=== PATIENT | male | born 1985 | race Caucasian/White ===

== ENCOUNTER 2017-05-06 14:21 | Emergency (ER) | payer OTHER ==
[~2017-05-06] VITALS: Ht 170.2 cm; Wt 263.1 kg
[~2017-05-06 14:21] MED LIST: CLEOCIN300 MG PO; DURICEF; FOLVITE1 MG PO; Folvite PO; Maxipime IV; ROBITUSSIN AC,T10 ML PO; Silvadene,SSD,Therma TP; Vicodin,Lortab 5/500 PO; ZOLOFT100 MG PO; ZYVOX600 MG PO; Zoloft PO
[2017-05-06 16:09] LABS: EOSINOPHIL (%) 2.5 % (0-5); EOSINOPHIL COUNT 0.2 K/uL (0-0.3); HEMATOCRIT 39.6 % (38.0-50.0); IMMATURE GRANULOCYTE (%) 0.4 % (0.0-0.7); INSTRUMENT ABS NEUTROPHIL CT 3.7 K/uL; LYMPHOCYTE COUNT 2.1 K/uL (1.0-2.8); MCH 28.5 PG (29.0-34.0); MCHC 31.6 G/DL (30.0-36.0); MCV 90.4 FL (86-99); MEAN PLAT.VOLUME 9.9 uM^3 (9.0-12.4); MONOCYTE (%) 10.5 % (3-12); MONOCYTE COUNT 0.7 K/uL (0-0.8); NEUTROPHIL (%) 55.7 % (45-76); NEUTROPHIL COUNT 3.7 K/uL (1.8-6.4); PLATELET COUNT 212 K/uL (156-360); RBC DIS.WIDTH-CV 13.6 % (11.8-14.6); RBC DIS.WIDTH-SD 45.1 % (39-53); RED BLOOD COUNT 4.38 M/uL (4.00-5.50); WHITE BLOOD COUNT 6.7 K/uL (4.1-10.2)
[2017-05-06 16:24] LABS: CHLORIDE 105 mEq/L (99-109); SODIUM 142 mEq/L (136-147)
[2017-05-06 16:26] LABS: GLUCOSE 91 mg/dL (70-99)
[2017-05-06 16:27] LABS: ANION GAP 8 MEQ/L (2-14)
[2017-05-06 16:28] LABS: TOTAL BILIRUBIN 0.3 mg/dL (0.0-1.0)
[2017-05-06 16:29] LABS: ALKALINE PHOSPHATASE 78 IU/L (3-129)
[2017-05-06 16:30] LABS: GFR ESTIMATE (CALCULATED) > 59 mL/min/
[2017-05-06 16:31] LABS: UREA NITROGEN (BUN) 8 mg/dL (9-23)
[2017-05-06] MEDS ORDERED: XARELTO15 MG PO (18:41)
[2017-05-06 19:36] VITALS: BP 154/72
== END 2017-05-06 19:36 | disposition home or self-care (01) ==
LOC: EME 14:21
PROVIDERS: Physician Assistant
DX: I82.812 Embolism and thrombosis of superficial veins of left lower extremity (principal); E66.01 Morbid (severe) obesity due to excess calories; F32.9 Major depressive disorder, single episode, unspecified; F41.0 Panic disorder [episodic paroxysmal anxiety]; Z88.0 Allergy status to penicillin; Z88.8 Allergy status to other drugs, medicaments and biological substances
CPT/HCPCS: 80053; 85025; 93971; 99281; 99284; J1885